=== PATIENT | male | born 1940 | race Caucasian/White ===

== ENCOUNTER 2019-11-06 21:45 | Emergency (ER) | payer OTHER, MEDICARE ==
[~2019-11-06] VITALS: Ht 175.3 cm; Wt 170.0 kg
[2019-11-06 22:26] LABS: BASOPHILS ABSOLUTE AUTO 0.04 K/mm3 (0.00-0.23); BASOPHILS PERCENT AUTO 1 % (0-2); EOSINOPHILS PERCENT AUTO 1 % (0-6); Hematocrit 50.5 % (37.0-53.0); Hemoglobin 17.3 g/dL (13.5-17.5); IMMATURE GRAN ABSOLUTE AUTO 0.02 K/mm3 (0.00-0.10); IMMATURE GRAN PERCENT AUTO 0 % (0-1); LYMPHOCYTES ABSOLUTE AUTO 1.73 K/mm3 (0.84-5.20); LYMPHOCYTES PERCENT AUTO 24 % (21-46); MONOCYTES ABSOLUTE AUTO 0.95 K/mm3 (0.16-1.47); MONOCYTES PERCENT AUTO 13 % (4-13); Mean Corpuscular HGB 31.3 pg (26.0-34.0); Mean Corpuscular HGB Conc 34.3 g/dL (31.5-36.5); Mean Corpuscular Volume 91 fL (80-100); Mean Platelet Volume 9.7 fL (9.1-12.4); NEUTROPHILS ABSOLUTE AUTO 4.49 K/mm3 (1.96-9.15); NEUTROPHILS PERCENT AUTO 61 % (41-73); Platelet Count 245 K/mm3 (150-400); RDW Coefficient Variation 12.1 % (11.7-14.2); RDW Standard Deviation 40.1 fL (35.1-46.3); Red Blood Cell Count 5.53 M/mm3 (4.30-5.90); White Blood Cell Count 7.33 K/mm3 (4.00-11.30)
[2019-11-06 22:46] LABS: Alanine Aminotransfer (ALT/SGP 27 U/L (12-78); Albumin, Blood 3.7 g/dL (3.4-5.0); Alk Phos 65 U/L (50-136); Anion Gap 6 mmol/L (6-16); Aspartate Aminotrans (AST/SGOT 17 U/L (12-37); Blood Urea Nitrogen 20 mg/dL (8-24); CO2, Blood 26 mmol/L (21-32); Calcium, Blood 8.8 mg/dL (8.5-10.1); Chloride, Blood 105 mmol/L (98-108); Creatinine, Blood 1.11 mg/dL (0.60-1.20); Globulin, Blood 3.8 g/dL (2.2-4.0); Glomerular Filtration Rate >60 (60-); Glucose, Blood 112 mg/dL (70-99); Potassium, Blood 3.9 mmol/L (3.5-5.5); Sodium, Blood 137 mmol/L (136-145); Total Protein, Blood 7.5 g/dL (6.4-8.2); Troponin I <0.015 ng/mL (0.000-0.040)
[2019-11-07] MEDS ORDERED: Aspir 8181 MG PO (01:45)
[2019-11-07] MEDS ORDERED: VITAMIN D-40010 MC1 PO (01:46)
[2019-11-07] MEDS ORDERED: LOSA50 PO (01:46)
[2019-11-07] MEDS ORDERED: BENADRYL25 MG (01:46)
[2019-11-07] MEDS ORDERED: ESOM20 PO (01:47)
[2019-11-07] MEDS ORDERED: Naproxen250 MG PO (01:47)
[2019-11-07] MEDS ORDERED: METO50ER PO (01:47)
[2019-11-07] MEDS ORDERED: TOCO1000 PO (01:48)
[2019-11-07] MEDS ORDERED: CYAN500 PO (01:48)
== END 2019-11-07 00:25 | disposition home or self-care (01) ==
LOC: ER 21:45
PROVIDERS: Physician Assistant
DX: I10 Essential (primary) hypertension (principal); Z88.8 Allergy status to other drugs, medicaments and biological substances; Z79.899 Other long term (current) drug therapy; Z79.82 Long term (current) use of aspirin
CPT/HCPCS: 71046; 80053; 84484; 85025; 93005; 93010; 99284-25; J0360

== ENCOUNTER 2022-10-16 09:44 | Emergency (ER) | payer MEDICARE ==
[~2022-10-16] VITALS: Ht 175.3 cm; Wt 74.8 kg
[~2022-10-16 09:44] MED LIST: Aspir 8181 MG PO; BENADRYL25 MG; CYAN500 PO; ESOM20 PO; LOSA50 PO; METO50ER PO; Naproxen250 MG PO; TOCO1000 PO; VITAMIN D-40010 MC1 PO
[2022-10-16] MEDS ORDERED: METPRE4DP PO (11:50)
== END 2022-10-16 12:10 | disposition home or self-care (01) ==
LOC: ER 09:44
DX: M54.16 Radiculopathy, lumbar region (principal); Z88.8 Allergy status to other drugs, medicaments and biological substances; Z91.048 Other nonmedicinal substance allergy status; Z79.899 Other long term (current) drug therapy; Z79.82 Long term (current) use of aspirin; I10 Essential (primary) hypertension; I48.92 Unspecified atrial flutter
CPT/HCPCS: 73502; 99284-25; J1100